=== PATIENT | female | born 1965 | race Caucasian/White ===

== ENCOUNTER 2020-09-22 07:01 | Emergency (ER) | payer MEDICAID, SELFPAY ==
--- OUTSIDE RECORDS SUMMARY | 2020-09-22 07:04 | XMS REPORT | Continuity of Care Document ---
:1965 Author Organization [facility] t Address [address] [place] [address] Care Team Providers Name Role Phone Unavailable Unavailable Unavailable Payers Payer Name Policy Type Policy Number Effective Date Expiration Date S ource Problems This patient has no known problems. Allergies, Adverse Reactions, Alerts Allergy Allergy Status Severity Reaction(s) Onset Inactive Treating Comm ents Source Name Type Date Date Clinician codeine DA Active U 2019-07 [facility] 07-30 [facility] 00:00: e 00 [facility] No Known DA Active U [facility] Allergie 2-29 Clear s 00:00: [place] 00 [facility] codeine DA Active U [facility] 1-10 [facility] 00:00: e 00 [facility] Medications This patient has no known medications. Procedures This patient has no known procedures. Encounters Start End Encounter Admission Attending Care Care Encounter Source Date/Time Date/Time Type Type Clinicians Facility Department ID 2019-05-18 Outpatient [facility] [address] [facility] 14:33:59 Results Test Description Test Time Test Comments Results Result [facility] e Comments - CT CHEST 2020-05-30 W/CONTRAST 15:19:00 [facility] ([facility])Name: BOBBI OROZCO : 1965 Sex: F Name: BOBBI OROZCO [facility] : 1965 Age/S: 55 / F [address] [facility] Unit #: [id number] Loc: GREG Ruiz [address] Phys: Renee Mancera EVENT MARKETING REPRESENTATIVE Acct: [id number] Dis Date: Status: REG ER PHONE #: [phone] Exam Date: 05/30/2020 1512 FAX #: [phone] Reason: sob, elevated D-dimer EXAMS: CPT CODE: [id number] CT CHEST W/CONTRAST 75087 HISTORY: Shortness of breath and elevated d-dimer. COMPARISON: None available. Location: [facility]. CT chest with contrast: 100 mL of Isovue-370. Automated exposure control. Unremarkable aorta without aneurysm or dissection. Well-opacified SVC and the visualized neck vasculature. No pulmonary embolism in the proximal to mid pulmonary artery branches. The distal branches are limited due to poor resolution and contrast opacification. Unremarkable thyroid glands. Esophageal wall is not thickened. No pathologic adenopathy. Cardiomegaly without pericardial effusion. Lipoma seen interposed between the right and left atrium. Visualized upper abdomen is unremarkable. The subcutaneous tissues and the musculature is within normal limits. No lytic or blastic lesions noted within the bony skeleton. Patchy bilateral groundglass infiltrates with bullous change. No effusion or congestion or infiltrates. No bronchiectasis, honeycombing or fibrosis or endobronchial lesions. IMPRESSION: No pulmonary embolism in the proximal to mid pulmonary artery branches. Distal branches are nondiagnostic due to poor resolution. Unremarkable aorta. Patchy groundglass infiltrates bilaterally. Correlate for Covid pneumonia. at 1519 Reported and signed by: Santiago Sánchez M.D. CC: Renee Mancera NP Technologist:Светлана Navarrete RT(R); RENEA MCGEEI: DLP: Trnscb Date/Time: 05/30/2020 (5197) [email or web address] Orig Print D/T: S: 05/30/2020 (7831) PAGE 1 Signed Report D-DIMER 2020-05-30 13:50:00 Test Item Value Reference Range Interpretation Comme nts D-DIMER (test code = 817.00 ng/mLFEU 0-500 HH Resu lts called to [id number] by Mowbly) V.[email or web address].JP1 05/30 1345Critical results verifie d and read back by Nurse?YES Clini adolfo Cut-off value for D-Dimer is 500 ng/mL FEU. Comment: The In novance D-Dimer assay is intend ed for use asan aid in the diagnosi s of venous thromboembolism (VTE)[deep vein thrombosis (DVT ) or pulmonary embolism (PE)]. The measurement of D-Dimer should not be used as an aid inthe diagn osis of VTE, in patient with: -Therapeutic dose anticoagulant t herapy for >24 hours -Fibrino lytic therapy within previous 7 days -Trauma or surgery within previous 4 weeks -Disseminated m alignancies -Aortic aneurys m -Sepsis, severe infections, pne umonia, severe skin infections - Liver cirrhosis - C REACTIVE [id number] 13:25:00 Test Item Value Reference Range Interpretation Comments C REACTIVE PROTEIN (test code = 1.70 mg/dL 0-0.3 H CRP) - XR CHEST 1 [id number] 13:23:00 [facility] ([facility])Name: BOBBI OROZCO : 1965 Sex: F FAX: Renee Mancera NP [place]: B St: REG Name: BOBBI OROZCO [facility] : 1965 Age/S: 55/F [address] [facility] Unit #: [id number] Loc: GREG Sousa [address] Phys: Renee Mancera EVENT MARKETING REPRESENTATIVE Acct: [id number] Dis Date: Status: REG ER PHONE #: [phone] Exam Date: 05/30/2020 1247 FAX #: [phone] Reason: SHORTNESS OF BREATH EXAMS: CPT CODE: [id number] XR CHEST 1 V 12836 REASON FOR EXAM: SHORTNESS OF BREATH Exam Order Date: 05/30/2020 12:06 PM Ordering M.D.: Renee Mancera NP PROCEDURE: - XR CHEST 1 V COMPARISON: Chest x-ray July 15, 2009 FINDINGS: The lungs are clear. There is no pleural effusion or pneumothorax. Pulmonary vascularity is within normal limits. Cardiomediastinal silhouette is normal in size for technique. The mediastinal contours are within normal limits. Musculoskeletal structures are within normal limits. The visualized upper abdomen is within normal limits. IMPRESSION: No acute cardiopulmonary process. Location: [facility] at 1323 Reported and signed by: Ciro Jhaveri MD CC: Renee Mancera NP Technologist: ESMER BERNARDO Trnscrd Date/Time/By: 05/30/2020 (6547) : By: [email or web address] Orig Print D/T: S: 05/30/2020 (1392) PAGE 1 Signed ReportB-TYPE NATRIURETIC PEPTIDE 2020-05-30 13:20:00 Test Item Value Reference Range Interpretation Comments B-TYPE NATRIURETIC PEPTIDE 38.34 pgram/mL 0-100 N (test code = BNP) BASIC METABOLIC [id number] 13:18:00 Test Item Value Reference Range Interpretation Comments SODIUM (test code = 141 mmol/L 136-145 N NA) POTASSIUM (test code 4.1 mmol/L 3.5-5.1 N = K) CHLORIDE (test code = 108.0 mmol/L 98-107 H CL) CARBON DIOXIDE (test 27.0 mmol/L 21-32 N code = CO2) ANION GAP (test code 10.1 10-20 N = GAP) GLUCOSE (test code = 114 mg/dL 74-106 H GLU) BLOOD UREA NITROGEN 9 mg/dL 7-18 N (test code = BUN) GLOMERULAR FILTRATION > 60 mL/min >=60 Estima michell GFR by RATE (test code = using Elisa fied MDRD GFR) formula.Chronic kidney disease is defined as [facility] kidney damageor GFR <60 mL/min/1.73 m2 for >3 months. CREATININE (test code 0.70 mg/dL 0.55-1.02 N Note change in = CREAT) reference range due to change in reagent. BUN/CREATININE RATIO 13.5 10-20 N (test code = BUN/CREA) CALCIUM (test code = 9.1 mg/dL 8.5-10.1 N CA) HEPATIC FUNCTION [id number] 13:18:00 Test Item Value Reference Range Interpretation Comments TOTAL PROTEIN (test 7.2 gram/dL 6.4-8.2 N code = PROT) ALBUMIN (test code = 3.3 g/dL 3.4-5.0 L ALB) GLOBULIN (test code = 3.9 gram/dL 2.7-4.2 N GLOB) ALBUMIN/GLOBULIN RATIO 0.8 0.75-1.50 N (test code = A/G) BILIRUBIN TOTAL (test 0.90 mg/dL 0.0-1.0 N code = BILT) BILIRUBIN DIRECT (test 0.32 mg/dL 0.0-0.20 H code = BILD) SGOT/AST (test code = 48 IUnit/L 15-37 H AST) SGPT/ALT (test code = 36 IUnit/L 12-78 N ALT) ALKALINE PHOSPHATASE 167 IUnit/L 45-117 H Note change in TOTAL (test code = reference range due ALKP) to change in reagent. LACTIC DEHYDROGENASE(LDH)2020-05-30 13:18:00 Test Item Value Reference Range Interpretation Comments LACTIC DEHYDROGENASE(LDH) (test 348 IUnit/L 84-246 H code = LDH) [id number] 13:18:00 Test Item Value Reference Range Interpretation Comments LIPASE (test code = LIP) 99 U/L 73.0-393.0 N [id number] 13:18:00 Test Item Value Reference Range Interpretation Comments TROPONIN-I (test code = TROPI) <0.015 ng/mL 0-0.045 N [id number] 13:18:00 Test Item Value Reference Range Interpretation Comments FERRITIN (test code = KENNETH) 115 ng/mL 8-388 N COVID 19 INHOUSE [id number] 13:06:00 Test Item Value Reference Range Interpretation Comments COVID 19 INHOUSE AG (test code = NEGATIVE [id number]) BASIC METABOLIC [id number] 13:01:00 Test Item Value Reference Range Interpretation Comments SODIUM (test code = 141 mmol/L 136-145 N NA) POTASSIUM (test code 4.1 mmol/L 3.5-5.1 N = K) CHLORIDE (test code = 108.0 mmol/L 98-107 H CL) CARBON DIOXIDE (test 27.0 mmol/L 21-32 N code = CO2) ANION GAP (test code 10.1 10-20 N = GAP) GLUCOSE (test code = mg/dL 74-106 GLU) BLOOD UREA NITROGEN 9 mg/dL 7-18 N (test code = BUN) GLOMERULAR FILTRATION > 60 mL/min >=60 Estima michell GFR by RATE (test code = using Elisa fied MDRD GFR) formula.Chronic kidney disease is defined as [facility] kidney damageor GFR <60 mL/min/1.73 m2 for >3 months. CREATININE (test code 0.70 mg/dL 0.55-1.02 N Note change in = CREAT) reference range due to change in reagent. BUN/CREATININE RATIO 13.5 10-20 N (test code = BUN/CREA) CALCIUM (test code = 9.1 mg/dL 8.5-10.1 N CA) HEPATIC FUNCTION [id number] 13:01:00 Test Item Value Reference Range Interpretation Comments TOTAL PROTEIN (test 7.2 gram/dL 6.4-8.2 N code = PROT) ALBUMIN (test code = 3.3 g/dL 3.4-5.0 L ALB) GLOBULIN (test code = 3.9 gram/dL 2.7-4.2 N GLOB) ALBUMIN/GLOBULIN RATIO 0.8 0.75-1.50 N (test code = A/G) BILIRUBIN TOTAL (test 0.90 mg/dL 0.0-1.0 N code = BILT) BILIRUBIN DIRECT (test 0.32 mg/dL 0.0-0.20 H code = BILD) SGOT/AST (test code = 48 IUnit/L 15-37 H AST) SGPT/ALT (test code = 36 IUnit/L 12-78 N ALT) ALKALINE PHOSPHATASE 167 IUnit/L 45-117 H Note change in TOTAL (test code = reference range due ALKP) to change in reagent. LACTIC DEHYDROGENASE(LDH)2020-05-30 13:01:00 Test Item Value Reference Range Interpretation Comments LACTIC DEHYDROGENASE(LDH) (test 348 IUnit/L 84-246 H code = LDH) [id number] 13:01:00 Test Item Value Reference Range Interpretation Comments LIPASE (test code = LIP) 99 U/L 73.0-393.0 N [id number] 13:01:00 Test Item Value Reference Range Interpretation Comments TROPONIN-I (test code = TROPI) <0.015 ng/mL 0-0.045 N [id number] 13:01:00 Test Item Value Reference Range Interpretation Comments FERRITIN (test code = KENNETH) 115 ng/mL 8-388 N URINALYSIS [id number] 12:58:00 Test Item Value Reference Range Interpretation Comments UA COLOR (test code = COLU) YELLOW YELLOW UA APPEARANCE (test code = CLEAR CLEAR APPU) UA GLUCOSE DIPSTICK (test NEGATIVE mg/dL NEGATIVE code = DGLUU) UA BILIRUBIN DIPSTICK (test NEGATIVE mg/dL NEGATIVE code = BILU) UA KETONE DIPSTICK (test code NEGATIVE mg/dL NEGATIVE = KETU) UA SPECIFIC GRAVITY (test 1.015 1.001-1.035 code = SGU) UA BLOOD DIPSTICK (test code Negative mg/dL NEGATIVE = ESDRAS) UA PH DIPSTICK (test code = 6.0 5.0-8.0 JAIRO) UA PROTEIN DIPSTICK (test NEGATIVE mg/dL NEGATIVE code = PROU) UA UROBILINIOGEN DIPSTICK 4.0 (2+) mg/dL NEGATIVE A (test code = URO) UA NITRITE DIPSTICK (test NEGATIVE NEGATIVE code = DEION) UA LEUKOCYTE ESTERASE W NEGATIVE Charlene/uL NEGATIVE REFLEX (test code = LEUUR) UA WBC (test code = WBCU) 0-5 per HPF 0-5 UA RBC (test code = RBCU) 0-2 #/HPF 0-5 UA EPITHELIAL CELLS (test FEW per HPF FEW code = EPIU) UA BACTERIA (test code = NONE SEEN #/HPF NONE BACU) UA MUCUS (test code = MUCU) FEW #/LPF FEW Urine Source? Clean CatchLACTIC [id number] 12:56:00 Test Item Value Reference Range Interpretation Comments LACTIC ACID (test code = LACT) 1.8 mmol/L 0.4-1.9 N URINALYSIS [id number] 12:53:00 Test Item Value Reference Range Interpretation Comments UA COLOR (test code = COLU) YELLOW YELLOW UA APPEARANCE (test code = CLEAR CLEAR APPU) UA GLUCOSE DIPSTICK (test NEGATIVE mg/dL NEGATIVE code = DGLUU) UA BILIRUBIN DIPSTICK (test NEGATIVE mg/dL NEGATIVE code = BILU) UA KETONE DIPSTICK (test code NEGATIVE mg/dL NEGATIVE = KETU) UA SPECIFIC GRAVITY (test 1.015 1.001-1.035 code = SGU) UA BLOOD DIPSTICK (test code Negative mg/dL NEGATIVE = ESDRAS) UA PH DIPSTICK (test code = 6.0 5.0-8.0 JAIRO) UA PROTEIN DIPSTICK (test NEGATIVE mg/dL NEGATIVE code = PROU) UA UROBILINIOGEN DIPSTICK 4.0 (2+) mg/dL NEGATIVE A (test code = URO) UA NITRITE DIPSTICK (test NEGATIVE NEGATIVE code = DEION) UA LEUKOCYTE ESTERASE W NEGATIVE Charlene/uL NEGATIVE REFLEX (test code = LEUUR) UA WBC (test code = WBCU) per HPF 0-5 UA RBC (test code = RBCU) per HPF 0-5 UA EPITHELIAL CELLS (test per HPF Few code = EPIU) UA BACTERIA (test code = per HPF NONE BACU) Urine Source? Clean CatchBASIC METABOLIC [id number] 12:52:00 Test Item Value Reference Range Interpretation Comments SODIUM (test code = NA) 141 mmol/L 136-145 N POTASSIUM (test code = K) 4.1 mmol/L 3.5-5.1 N CHLORIDE (test code = CL) 108.0 mmol/L 98-107 H CARBON DIOXIDE (test code = CO2) mmol/L 21-32 ANION GAP (test code = GAP) 10-20 GLUCOSE (test code = GLU) mg/dL 74-106 BLOOD UREA NITROGEN (test code = mg/dL 7-18 BUN) GLOMERULAR FILTRATION RATE (test mL/min >=60 code = GFR) CREATININE (test code = CREAT) mg/dL 0.55-1.02 BUN/CREATININE RATIO (test code 10-20 = BUN/CREA) CALCIUM (test code = CA) mg/dL 8.5-10.1 HEPATIC FUNCTION [id number] 12:52:00 Test Item Value Reference Range Interpretation Comments TOTAL PROTEIN (test code = PROT) gram/dL 6.4-8.2 ALBUMIN (test code = ALB) g/dL 3.4-5.0 GLOBULIN (test code = GLOB) gram/dL 2.7-4.2 ALBUMIN/GLOBULIN RATIO (test code = 0.75-1.50 A/G) BILIRUBIN TOTAL (test code = BILT) mg/dL 0.0-1.0 BILIRUBIN DIRECT (test code = BILD) mg/dL 0.0-0.20 SGOT/AST (test code = AST) IUnit/L 15-37 SGPT/ALT (test code = ALT) IUnit/L 12-78 ALKALINE PHOSPHATASE TOTAL (test IUnit/L 45-117 code = ALKP) LACTIC DEHYDROGENASE(LDH)2020-05-30 12:52:00 Test Item Value Reference Range Interpretation Comments LACTIC DEHYDROGENASE(LDH) (test code IUnit/L 84-246 = LDH) [id number] 12:52:00 Test Item Value Reference Range Interpretation Comments LIPASE (test code = LIP) U/L 73.0-393.0 [id number] 12:52:00 Test Item Value Reference Range Interpretation Comments TROPONIN-I (test code = TROPI) ng/mL 0-0.045 [id number] 12:52:00 Test Item Value Reference Range Interpretation Comments FERRITIN (test code = KENNETH) ng/mL 8-388 CBC W/AUTO [id number] 12:35:00 Test Item Value Reference Range Interpretation Comments WHITE BLOOD CELL (test code = 3.9 K/mm3 4.5-12.5 L WBC) RED BLOOD CELL (test code = 5.06 mill/mm3 3.7-5.2 N RBC) HEMOGLOBIN (test code = HGB) 14.7 gram/dL 11.5-15.5 N HEMATOCRIT (test code = HCT) 44.4 % 36.0-46.0 N MEAN CELL VOLUME (test code = 87.7 fL 80-98 N MCV) MEAN CELL HGB (test code = MCH) 29.1 picogram 27.0-33.0 N MEAN CELL HGB CONCETRATION 33.1 gram/dL 33.0-36.0 N (test code = MCHC) RED CELL DISTRIBUTION WIDTH 14.4 % 11.6-16.2 N (test code = RDW) RED CELL DISTRIBUTION WIDTH SD 45.7 fL 37.0-51.0 N (test code = RDW-SD) PLATELET COUNT (test code = 108 K/mm3 150-450 L PLT) MEAN PLATELET VOLUME (test code 10.0 fL 6.7-11.0 N = MPV) NEUTROPHIL % (test code = NT%) 63.5 % 39.0-69.0 N IMMATURE GRANULOCYTE % (test 0.8 % 0.0-5.0 N code = IG%) LYMPHOCYTE % (test code = LY%) 26.5 % 25.0-55.0 N MONOCYTE % (test code = MO%) 7.4 % 0.0-10.0 N EOSINOPHIL % (test code = EO%) 1.3 % 0.0-5.0 N BASOPHIL % (test code = BA%) 0.5 % 0.0-1.0 N NUCLEATED RBC % (test code = 0.0 % 0-0 N NRBC%) NEUTROPHIL # (test code = NT#) 2.49 K/mm3 1.8-7.7 N IMMATURE GRANULOCYTE # (test 0.03 x10 3/uL 0-0.03 N code = IG#) LYMPHOCYTE # (test code = LY#) 1.04 K/mm3 1.0-5.0 N MONOCYTE # (test code = MO#) 0.29 K/mm3 0-0.8 N EOSINOPHIL # (test code = EO#) 0.05 K/mm3 0.0-0.5 N BASOPHIL # (test code = BA#) 0.02 K/mm3 0.0-0.2 N NUCLEATED RBC # (test code = 0.00 K/mm3 0.0-0.1 N NRBC#) Coronavirus 2019 [id number] 14:40:00 Test Item Value Reference Range Interpretation Comments Coronavirus 2018 NEGATIVE NOT DETECT. Test perfor med at: Confirmation (test code [facility] = [id number]) [address] [place] [address] Novel Coronavirus 13:43:00 Test Item Value Reference Range Interpretation Comments Novel Coronavirus Not Detected Not Detected Testing wa s performed 2018 nCoV (test using the Ap michelle code = COVID19) SARS-CoV-2 a ssay.This nucleic acid amplification t est was developed and itsperfomance characteristics determined by Gisela charles. Nucleic acid amplification t ests include PCRand TMA. This test has not be en FDA cleared or appr wali.This test has been a uthorized by FDA under an Emergency UseAuthorizatio n (EUA). This test is on ly authorized he duration of e the declaration robert t circumstancesex ist justifying the authorization o f the emergency use o fin vitro diagnostic test s for detection of SA RS-CoV-2 virusand/or loyda gnosis of COVID-19 infect ion under ivbknlk909(b)(1 ) of the Act, 21 U.S.C. 360bbb-3(b) (1) , unless theauthorizatio n is terminated or r evoked sooner.When loyda gnostic testing is nega tive, the possibility of afalse negative result should be considered i n the contextof a pat ient's recent exposure s and the presence ofclin ical signs and sympt oms consistent with COVID-19. Anind ividual without symptom s of COVID-19 and wh o is notshedding LYRIC S-CoV-2 virus would exp ect to have a negative (not detected) resul t in this assay.Performed At: [facility] [address] [id number] sara Sabillon MD Ph:[phone] Novel Coronavirus 13:11:00 Test Item Value Reference Range Interpretation Comments Novel Coronavirus Not Detected Not Detected Testing wa s performed 2019 nCoV (test using the Ap michelle code = COVID19) SARS-CoV-2 a ssay.This nucleic acid amplification t est was developed and itsperfomance characteristics determined by [facility]. Nucleic acid amplification t ests include PCRand TMA. This test has not be en FDA cleared or appr wali.This test has been a uthorized by FDA under an Emergency UseAuthorizatio n (EUA). This test is on ly authorized fort he duration of e the declaration robert t circumstancesex ist justifying the authorization o f the emergency use o fin vitro diagnostic test s for detection of SA RS-CoV-2 virusand/or loyda gnosis of COVID-19 infect ion under pucutxy112(b)(1 ) of the Act, 21 U.S.C. 360bbb-3(b) (1) , unless theauthorizatio n is terminated or r evoked sooner.When loyda gnostic testing is nega tive, the possibility of afalse negative result should be considered i n the contextof a pat ient's recent exposure s and the presence ofclin ical signs and sympt oms consistent with COVID-19. Anind ividual without symptom s of COVID-19 and wh o is notshedding LYRIC S-CoV-2 virus would exp ect to have a negative (not detected) resul t in this assay.Performed At: [facility] [address] [id number] sara Sabillon MD Ph:[phone] [facility] Inpatient (test code = LCAIP) [id number] 12:20:00 Test Item Value Reference Range Interpretation Comments GLUBED (test code = 90 mg/dL 74-106 N Performe d by certified GLUBED) paper making machine operator at [facility] [id number] 11:57:00 Test Item Value Reference Range Interpretation Comments GLUBED (test code = 113 mg/dL 74-106 H Performe d by certified GLUBED) paper making machine operator at [facility] [id number] 06:46:00 Test Item Value Reference Range Interpretation Comments GLUBED (test code = 100 mg/dL 74-106 N Performe d by certified GLUBED) paper making machine operator at [facility] [id number] 20:53:00 Test Item Value Reference Range Interpretation Comments GLUBED (test code = 212 mg/dL 74-106 H Performe d by certified GLUBED) paper making machine operator at [facility] [id number] 16:23:00 Test Item Value Reference Range Interpretation Comments GLUBED (test code = 138 mg/dL 74-106 H Performe d by certified GLUBED) paper making machine operator at [facility] [id number] 12:13:00 Test Item Value Reference Range Interpretation Comments GLUBED (test code = 149 mg/dL 74-106 H Performe d by certified GLUBED) paper making machine operator at [facility] CBC W/AUTO [id number] 08:27:00 Test Item Value Reference Range Interpretation Comments WHITE BLOOD CELL (test code = 6.3 K/mm3 4.5-12.5 N WBC) RED BLOOD CELL (test code = 5.58 mill/mm3 3.7-5.2 H RBC) HEMOGLOBIN (test code = HGB) 15.7 gram/dL 11.5-15.5 H HEMATOCRIT (test code = HCT) 48.4 % 36.0-46.0 H MEAN CELL VOLUME (test code = 86.7 fL 80-98 N MCV) MEAN CELL HGB (test code = MCH) 28.1 picogram 27.0-33.0 N MEAN CELL HGB CONCETRATION 32.4 gram/dL 33.0-36.0 L (test code = MCHC) RED CELL DISTRIBUTION WIDTH 14.1 % 11.6-16.2 N (test code = RDW) RED CELL DISTRIBUTION WIDTH SD 44.0 fL 37.0-51.0 N (test code = RDW-SD) PLATELET COUNT (test code = 151 K/mm3 150-450 N PLT) MEAN PLATELET VOLUME (test code 9.9 fL 6.7-11.0 N = MPV) NEUTROPHIL % (test code = NT%) 85.7 % 39.0-69.0 H IMMATURE GRANULOCYTE % (test 0.8 % 0.0-5.0 N code = IG%) LYMPHOCYTE % (test code = LY%) 10.4 % 25.0-55.0 L MONOCYTE % (test code = MO%) 2.9 % 0.0-10.0 N EOSINOPHIL % (test code = EO%) 0.0 % 0.0-5.0 N BASOPHIL % (test code = BA%) 0.2 % 0.0-1.0 N NUCLEATED RBC % (test code = 0.0 % 0-0 N NRBC%) NEUTROPHIL # (test code = NT#) 5.37 K/mm3 1.8-7.7 N IMMATURE GRANULOCYTE # (test 0.05 x10 3/uL 0-0.03 H code = IG#) LYMPHOCYTE # (test code = LY#) 0.65 K/mm3 1.0-5.0 L MONOCYTE # (test code = MO#) 0.18 K/mm3 0-0.8 N EOSINOPHIL # (test code = EO#) 0.00 K/mm3 0.0-0.5 N BASOPHIL # (test code = BA#) 0.01 K/mm3 0.0-0.2 N NUCLEATED RBC # (test code = 0.00 K/mm3 0.0-0.1 N NRBC#) MANUAL DIFF REQUIRED (test code NO = MDIFF) BASIC METABOLIC [id number] 06:48:00 Test Item Value Reference Range Interpretation Comments SODIUM (test code = 140 mmol/L 136-145 N NA) POTASSIUM (test code 4.2 mmol/L 3.5-5.1 N = K) CHLORIDE (test code = 106.0 mmol/L 98-107 N CL) CARBON DIOXIDE (test 26.0 mmol/L 21-32 N code = CO2) ANION GAP (test code 12.2 10-20 N = GAP) GLUCOSE (test code = 151 mg/dL 74-106 H GLU) BLOOD UREA NITROGEN 15 mg/dL 7-18 N (test code = BUN) GLOMERULAR FILTRATION > 60 mL/min >=60 Estima michell GFR by RATE (test code = using Elisa fied MDRD GFR) formula.Chronic kidney disease is defined as ei er kidney damageor GFR <60 mL/min/1.73 m2 for >3 months. CREATININE (test code 0.90 mg/dL 0.55-1.02 N Note change in = CREAT) reference range due to change in reagent. BUN/CREATININE RATIO 16.7 10-20 N (test code = BUN/CREA) CALCIUM (test code = 9.3 mg/dL 8.5-10.1 N CA) [id number] 06:48:00 Test Item Value Reference Range Interpretation Comments TROPONIN-I (test code = TROPI) <0.015 ng/mL 0-0.045 N COMMENTS TO SEEING EYE DOG TRAINER: COLLECT 3 HOURS AFTER PREVIOUS [id number] 06:06:00 Test Item Value Reference Range Interpretation Comments GLUBED (test code = 157 mg/dL 74-106 H Performe d by certified GLUBED) paper making machine operator at [facility] [id number] 05:58:00 Test Item Value Reference Range Interpretation Comments GLUBED (test code = 155 mg/dL 74-106 H Performe d by certified GLUBED) paper making machine operator at [facility] CBC W/AUTO [id number] 05:44:00 Test Item Value Reference Range Interpretation Comments WHITE BLOOD CELL (test code = 6.3 K/mm3 4.5-12.5 N WBC) RED BLOOD CELL (test code = 5.58 mill/mm3 3.7-5.2 H RBC) HEMOGLOBIN (test code = HGB) 15.7 gram/dL 11.5-15.5 H HEMATOCRIT (test code = HCT) 48.4 % 36.0-46.0 H MEAN CELL VOLUME (test code = 86.7 fL 80-98 N MCV) MEAN CELL HGB (test code = MCH) 28.1 picogram 27.0-33.0 N MEAN CELL HGB CONCETRATION 32.4 gram/dL 33.0-36.0 L (test code = MCHC) RED CELL DISTRIBUTION WIDTH 14.1 % 11.6-16.2 N (test code = RDW) RED CELL DISTRIBUTION WIDTH SD 44.0 fL 37.0-51.0 N (test code = RDW-SD) PLATELET COUNT (test code = 151 K/mm3 150-450 N PLT) MEAN PLATELET VOLUME (test code 9.9 fL 6.7-11.0 N = MPV) NEUTROPHIL % (test code = NT%) 85.7 % 39.0-69.0 H IMMATURE GRANULOCYTE % (test 0.8 % 0.0-5.0 N code = IG%) LYMPHOCYTE % (test code = LY%) 10.4 % 25.0-55.0 L MONOCYTE % (test code = MO%) 2.9 % 0.0-10.0 N EOSINOPHIL % (test code = EO%) 0.0 % 0.0-5.0 N BASOPHIL % (test code = BA%) 0.2 % 0.0-1.0 N NUCLEATED RBC % (test code = 0.0 % 0-0 N NRBC%) NEUTROPHIL # (test code = NT#) 5.37 K/mm3 1.8-7.7 N IMMATURE GRANULOCYTE # (test 0.05 x10 3/uL 0-0.03 H code = IG#) LYMPHOCYTE # (test code = LY#) 0.65 K/mm3 1.0-5.0 L MONOCYTE # (test code = MO#) 0.18 K/mm3 0-0.8 N EOSINOPHIL # (test code = EO#) 0.00 K/mm3 0.0-0.5 N BASOPHIL # (test code = BA#) 0.01 K/mm3 0.0-0.2 N NUCLEATED RBC # (test code = 0.00 K/mm3 0.0-0.1 N NRBC#) MANUAL DIFF REQUIRED (test code = MDIFF) CBC W/AUTO [id number] 05:41:00 Test Item Value Reference Range Interpretation Comments WHITE BLOOD CELL (test code = WBC) K/mm3 4.5-12.5 RED BLOOD CELL (test code = RBC) mill/mm3 3.7-5.2 HEMOGLOBIN (test code = HGB) gram/dL 11.5-15.5 HEMATOCRIT (test code = HCT) % 36.0-46.0 MEAN CELL VOLUME (test code = MCV) fL 80-98 MEAN CELL HGB (test code = MCH) picogram 27.0-33.0 MEAN CELL HGB CONCETRATION (test gram/dL 33.0-36.0 code = MCHC) RED CELL DISTRIBUTION WIDTH (test % 11.6-16.2 code = RDW) RED CELL DISTRIBUTION WIDTH SD fL 37.0-51.0 (test code = RDW-SD) PLATELET COUNT (test code = PLT) 151 K/mm3 150-450 N MEAN PLATELET VOLUME (test code = fL 6.7-11.0 MPV) NEUTROPHIL % (test code = NT%) % 39.0-69.0 IMMATURE GRANULOCYTE % (test code = % 0.0-5.0 IG%) LYMPHOCYTE % (test code = LY%) % 25.0-55.0 MONOCYTE % (test code = MO%) % 0.0-10.0 EOSINOPHIL % (test code = EO%) % 0.0-5.0 BASOPHIL % (test code = BA%) % 0.0-1.0 NEUTROPHIL # (test code = NT#) K/mm3 1.8-7.7 LYMPHOCYTE # (test code = LY#) K/mm3 1.0-5.0 MONOCYTE # (test code = MO#) K/mm3 0-0.8 EOSINOPHIL # (test code = EO#) K/mm3 0.0-0.5 BASOPHIL # (test code = BA#) K/mm3 0.0-0.2 [id number] 02:25:00 Test Item Value Reference Range Interpretation Comments D-DIMER (test 574.00 ng/mLFEU 0-500 HH Results adolfo led to [id number] code = DDIMER) by V.LAB.GP 0 03/06/20 0225Critical re sults verified and re ad back by Nurse? [facility] Cut-off value for D-Dim er is 500 ng/mL FEU. Comm ent: The [employer] D-Dim er assay is intended for use asan aid in the diag nosis of venous thromboe mbolism (VTE)[deep vein thrombosis (DVT ) or pulmonary embol ism (PE)].The measu rement of D-Dimer should not be used as an aid inthe diagnosis of VT E, in patient with: -Therapeutic do se anticoagulant t herapy for >24 hours -Fib rinolytic therapy within previous 7 days -Trauma o r surgery within previous 4 weeks -Disseminated malignancies - Aortic aneurysm -Seps is, severe infections, pne umonia, severe skin i nfections -Liver cirrhosi s - [id number] 01:18:00 Test Item Value Reference Range Interpretation Comments TROPONIN-I (test code = TROPI) <0.015 ng/mL 0-0.045 N COMMENTS TO SEEING EYE DOG TRAINER: COLLECT 3 HOURS AFTER PREVIOUS SAMPLEB-TYPE NATRIURETIC [id number] 21:43:00 Test Item Value Reference Range Interpretation Comments B-TYPE NATRIURETIC PEPTIDE (test 25.0 pg/mL 0-100 N code = BNP) [id number] 21:40:00 Test Item Value Reference Range Interpretation Comments GLYCOSYLATED HEMOGLOBIN 5.9 % HbA1 SUGG ESTED DIAGNOSIS: (HA1C) (test code = HbA1C GLYHGB) (%) ----- ----- Diab etic >6.4Prediabetes 5.7 - 6.4Normal <5.7 ESTIMATED AVERAGE 123 MG/DL GLUCOSE (test code = EAG) - CTA CHEST FOR [id number] 18:23:00 Name: BOBBI TORRES [facility] : 1965 Age/S: 54 / F [address] [facility] Unit #: [id number] Loc: [place] [address] Phys: Martin Wakefield MD Acct: [id number] Dis Date: Status: REG ER PHONE #: [phone] Exam Date: 03/05/2020 8554 FAX #: [phone] Reason: Hypoxia, SOB, chest pain EXAMS: CPT CODE: [id number] [place] [id number] REASON FOR EXAM: Hypoxia, SOB, chest pain EXAM ORDER DATE: 03/05/2020 1:29 PM Ordering: Martin Wakefield MD Attending:Martin Wakefield MD Location: COMPARISON: PROCEDURE: - CTA CHEST FOR PE FINDINGS: CT images of the chest were obtained with IV contrast. Reconstructed sagittal and coronal images of the chest were provided forinterpretation. Dose modulation, iterative reconstruction, and/or weight based adjustment of the MA/KV was utilized to reduce the radiation dose to as low as reasonably achievable. Intravenous contrast: 100cc of Omnipaque 370. The heart size is within normal limits. No evidence of pericardial effusion The thoracic aorta is unremarkable. No evidence of dissection or aneurysmal dilatation. No filling defect seen within the main or lobar pulmonary arteries to suggest pulmonary embolus. No evidence of mediastinal or hilar adenopathy. The lungs are clear. No evidence of pleural effusion IMPRESSION: Diffuse nonspecific groundglass opacity of the lungs suggestive of atelectasis. Nodular contour liver suggestive of cirrhosis at 1823 Reported and signed by: Martin Jimenez M.D. CC: Martin Wakefield MD Technologist:Светлана Navarrete RT(R); RENEA Steven CTDI: DLP: Trnscb Date/Time: 03/05/2020 (1822) t.VTL Orig Print D/T: S: 03/05/2020 (1825) PAGE 1 Signed Report- CTA CHEST FOR [id number] 18:23:00 [facility] 1965 Sex: F Name: BOBBI TORRES [facility] : 1965 Age/S: 54 / F [address] [facility] Unit #: [id number] Loc: [place] [address] Phys: Martin Wakefield MD Acct: [id number] Dis Date: Status: DIS IN PHONE #: [phone] Exam Date: 03/05/2020 2853 FAX #: [phone] Reason: Hypoxia, SOB, chest pain EXAMS: CPT CODE: [id number] [place] [id number] REASON FOR EXAM: Hypoxia, SOB, chest pain EXAM ORDER DATE: 03/05/2020 1:29 PM Ordering: Martin Wakefield MD Attending:Martin Wakefield MD Location: COMPARISON: PROCEDURE: - CTA CHEST FOR PE FINDINGS: CT images of the chest were obtained with IV contrast. Reconstructed sagittal and coronal images of the chest were provided for interpretation. Dose modulation, iterative reconstruction, and/or weightbased adjustment of the MA/KV was utilized to reduce the radiation dose to as low as reasonably achievable. Intravenous contrast: 100cc of Omnipaque 370. The heart size is within normal limits. No evidence of pericardial effusion The thoracic aorta is unremarkable. No evidence of dissection or aneurysmal dilatation. No filling defect seen within the main or lobar pulmonary arteries to suggest pulmonary embolus. No evidence of mediastinal or hilar adenopathy. The lungs are clear. No evidence of pleural effusion IMPRESSION: Diffuse nonspecific groundglass opacity of the lungs suggestive of atelectasis. Nodular contour liver suggestive of cirrhosis at 1823 Reported and signed by: Martin Jimenez M.D.CC: Martin Wakefield MD Technologist:Светлана Navarrete RT(R); RENEA Steven CTDI: DLP: Trnscb Date/Time: 03/05/2020 (1822) t.EZEQUIELR.VTL Orig Print D/T: S: 03/05/2020 (1825) PAGE 1 Signed ReportCOVID 19 INHOUSE [id number] 15:56:00 Test Item Value Reference Range Interpretation Comments COVID 19 INHOUSE AG (test code = NEGATIVE [id number]) BASIC METABOLIC [id number] 13:05:00 Test Item Value Reference Range Interpretation Comments SODIUM (test code = 140 mmol/L 136-145 N NA) POTASSIUM (test code 3.9 mmol/L 3.5-5.1 N = K) CHLORIDE (test code = 106.0 mmol/L 98-107 N CL) CARBON DIOXIDE (test 26.0 mmol/L 21-32 N code = CO2) ANION GAP (test code 11.9 10-20 N = GAP) GLUCOSE (test code = 88 mg/dL 74-106 N GLU) BLOOD UREA NITROGEN 12 mg/dL 7-18 N (test code = BUN) GLOMERULAR FILTRATION > 60 mL/min >=60 Estima michell GFR by RATE (test code = using Elisa fied MDRD GFR) formula.Chronic kidney disease is defined as [facility] kidney damageor GFR <60 mL/min/1.73 m2 for >3 months. CREATININE (test code 0.80 mg/dL 0.55-1.02 N Note change in = CREAT) reference range due to change in reagent. BUN/CREATININE RATIO 15.6 10-20 N (test code = BUN/CREA) CALCIUM (test code = 9.4 mg/dL 8.5-10.1 N CA) [id number] 13:05:00 Test Item Value Reference Range Interpretation Comments TROPONIN-I (test code = TROPI) <0.015 ng/mL 0-0.045 N BASIC METABOLIC [id number] 12:48:00 Test Item Value Reference Range Interpretation Comments SODIUM (test code = NA) 140 mmol/L 136-145 N POTASSIUM (test code = K) 3.9 mmol/L 3.5-5.1 N CHLORIDE (test code = CL) 106.0 mmol/L 98-107 N CARBON DIOXIDE (test code = CO2) mmol/L 21-32 ANION GAP (test code = GAP) 10-20 GLUCOSE (test code = GLU) mg/dL 74-106 BLOOD UREA NITROGEN (test code = mg/dL 7-18 BUN) GLOMERULAR FILTRATION RATE (test mL/min >=60 code = GFR) CREATININE (test code = CREAT) mg/dL 0.55-1.02 BUN/CREATININE RATIO (test code 10-20 = BUN/CREA) CALCIUM (test code = CA) mg/dL 8.5-10.1 [id number] 12:48:00 Test Item Value Reference Range Interpretation Comments TROPONIN-I (test code = TROPI) ng/mL 0-0.045 CBC W/O [id number] 12:38:00 Test Item Value Reference Range Interpretation Comments WHITE BLOOD CELL (test code = WBC) K/mm3 4.5-12.5 RED BLOOD CELL (test code = RBC) mill/mm3 3.7-5.2 HEMOGLOBIN (test code = HGB) gram/dL 11.5-15.5 HEMATOCRIT (test code = HCT) % 36.0-46.0 MEAN CELL VOLUME (test code = MCV) fL 80-98 MEAN CELL HGB (test code = MCH) picogram 27.0-33.0 MEAN CELL HGB CONCETRATION (test gram/dL 33.0-36.0 code = MCHC) RED CELL DISTRIBUTION WIDTH (test % 11.6-16.2 code = RDW) PLATELET COUNT (test code = PLT) 151 K/mm3 150-450 N MEAN PLATELET VOLUME (test code = fL 6.7-11.0 MPV) CBC W/O [id number] 12:38:00 Test Item Value Reference Range Interpretation Comments WHITE BLOOD CELL (test code = 6.4 K/mm3 4.5-12.5 N WBC) RED BLOOD CELL (test code = 5.71 mill/mm3 3.7-5.2 H RBC) HEMOGLOBIN (test code = HGB) 16.2 gram/dL 11.5-15.5 H HEMATOCRIT (test code = HCT) 48.5 % 36.0-46.0 H MEAN CELL VOLUME (test code = 84.9 fL 80-98 N MCV) MEAN CELL HGB (test code = MCH) 28.4 picogram 27.0-33.0 N MEAN CELL HGB CONCETRATION 33.4 gram/dL 33.0-36.0 N (test code = MCHC) RED CELL DISTRIBUTION WIDTH 14.3 % 11.6-16.2 N (test code = RDW) PLATELET COUNT (test code = 151 K/mm3 150-450 N PLT) MEAN PLATELET VOLUME (test code 9.6 fL 6.7-11.0 N = MPV) - XR CHEST 1 [id number] 12:27:00 FAX: Neville Turner NP [phone] [place]: [address]: REG Name: BOBBI TORRES [facility] : 1965 Age/S: 54/F [address] Unit#: [id number] Loc: [place] [address] Phys: Neville Turner EVENT MARKETING REPRESENTATIVE Acct: [id number] Dis Date: Status: REG ER PHONE #: [phone] Exam Date: 03/05/2020 1220 FAX #: [phone] Reason: CHEST PAIN EXAMS: CPT CODE: [id number] XR CHEST 1 V [id number] REASON FOR EXAM: CHEST PAIN Exam Order Date: 03/05/2020 11:59 AM Ordering MJarek: Neville Turner NP PROCEDURE: - XR CHEST 1 V COMPARISON: None FINDINGS: The lungs are clear. There is no pleural effusion or pneumothorax. Pulmonary vascularity is within normal limits. Cardiomediastinal silhouette is normal in size for technique. The mediastinal contoursare within normal limits. Musculoskeletal structures are within normal limits. The visualized upper abdomen is within normal limits. IMPRESSION: No acute cardiopulmonary process. Location: [facility] at 1227 Reported and signed by: Ciro Jhaveri MD CC: Neville Turner NP Technologist: RT KELI(R) Trnscrd Date/Time/By: 03/05/2020 (9543) : By: [email or web address] Orig Print D/T: S: 03/05/2020 (5788) PAGE 1 Signed Report- XR CHEST 1 [id number] 12:27:00 [facility] 1965 Sex: F FAX: Neville Turner NP [phone] [place]: [address]: DIS Name: BOBBI TORRES [facility] : 1965 Age/S: 54/F [address] Unit #: [id number] Loc: [place] [address] Phys: Neville Turner EVENT MARKETING REPRESENTATIVE Acct: [id number] Dis Date: Status: DIS IN PHONE #: [phone] Exam Date: 03/05/2020 1220 FAX #: [phone] Reason: CHEST PAIN EXAMS: CPT CODE: [id number] XR CHEST1 V 07870 REASON FOR EXAM: CHEST PAIN Exam Order Date: 03/05/2020 11:59 AM Ordering M.D.: Neville Turner NP PROCEDURE: - XR CHEST 1 V COMPARISON: None FINDINGS: The l ungs are clear. There is no pleural effusion or pneumothorax. Pulmonary vascularity is withinnormal limits. Cardiomediastinal silhouette is normal in size for technique. Themediastinal contours are within normal limits. Musculoskeletal structures are within normal limits. The visualized upper abdomen is within normal limits. IMPRESSION: No acute cardiopulmonary process. Location: [facility] at 1227 Reported and signed by: Ciro Jhaveri MD CC: Neville Turner NP Technologist: RT KELI(R) Trnscrd Date/Time/By: 03/05/2020 (3465) : By: [email or web address] Orig Print D/T: S: 03/05/2020 (3572) PAGE 1 Signed Report
[2020-09-22 07:53] LABS: Absolute Lymphocytes (CBC) 1.6 K/uL (0.7-4.9); Basophils % 0.9 % (0-1.3); Hematocrit 48.8 % (36.0-45.0); Lymphocytes % 19.7 % (15.3-44.8); MPV 7.9 fL (7.6-11.3); RBC Red Blood Cell Count 5.68 M/uL (3.86-4.86)
--- NOTE | 2020-09-22 08:05 | RAD REPORT ---
EXAM DESCRIPTION: RAD - Chest Single View - 09/22/2020 7:38 am CLINICAL HISTORY: COUGH Chest pain. COMPARISON: Head C Spine Mpr Wo Con dated 04/27/2020No comparisons FINDINGS: Portable technique limits examination quality. The lungs are grossly clear. The heart is upper limit of normal in size. No displaced fractures. IMPRESSION: No acute intrathoracic process suspected.
[2020-09-22 08:18] LABS: ALT/SGPT 38 U/L (12-78); AST/SGOT 35 U/L (15-37); Albumin 3.8 g/dL (3.4-5.0); Alkaline Phosphatase 162 U/L (45-117); BUN Blood Urea Nitrogen 9 mg/dL (7-18); Bicarbonate 25 mmol/L (21-32); Bilirubin Direct 0.3 mg/dL (0-0.2); Bilirubin Total 0.5 mg/dL (0.2-1.0); Glucose Level 129 mg/dL (74-106); Lipase 223 U/L (73-393); Magnesium 2.4 mg/dL (1.8-2.4); NT PRO-BNP 36 pg/mL (<125); Potassium 3.9 mmol/L (3.5-5.1); Protein, Total 7.9 g/dL (6.4-8.2); Sodium Level 146 mmol/L (136-145); Troponin (Emerg Dept Use Only) < 0.02 ng/mL (0.0-0.045)
[2020-09-22] MEDS ORDERED: ONDANSETRON 4 MG/2 ML VIAL ONE (08:18)
[2020-09-22] MEDS ORDERED: NA CHLORIDE 0.9% 1,000 ML ONE (08:18)
[2020-09-22] MEDS ORDERED: MORPHINE 2 MG/ML SYR ONE (08:18)
[2020-09-22] MEDS ORDERED: NA CHLORIDE 0.9% 500 ML ONE (08:18)
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
[2020-09-22] MEDS ORDERED: MORPHINE 4 MG/ML SYR ONE (10:48)
[2020-09-22 10:58] VITALS: TEMP 98.2
[2020-09-22 11:00] VITALS: BP 106/59; O2SAT 97
== END 2020-09-22 10:53 | disposition home or self-care (01) ==
LOC: ER 07:01
DX: R07.89 Other chest pain (principal); R10.819 Abdominal tenderness, unspecified site; E66.9 Obesity, unspecified; F17.210 Nicotine dependence, cigarettes, uncomplicated
CPT/HCPCS: 93005; 85025; 80048; 36415; 83735; 80076; 84484; 83690; 83880; 70450; 71250; 72125; 71045; 96375; 96374; 99285; J2270; J7040; J7030; J2405